=== PATIENT | male | born 1980 | race African-American/Black ===

== ENCOUNTER 2017-03-13 21:57 | Emergency (ER) | payer OTHER ==
[~2017-03-13 21:57] MED LIST: DILA8TAB4 PO; RANI150 PO
[2017-03-13 21:58] VITALS: BP 134/89; PULSE 84; RESP 14; TEMP 98.7; O2SAT 98
[2017-03-13] MEDS ORDERED: CYCL10TA PO (22:29)
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
[2017-03-13] MEDS ORDERED: CYCLOBENZAPRINE HCL 10 MG TAB PO ONE (22:30)
== END 2017-03-13 22:50 | disposition home or self-care (01) ==
LOC: NEPD 21:57
DX: M54.9 Dorsalgia, unspecified (principal); M25.512 Pain in left shoulder; M79.1 Myalgia; J45.909 Unspecified asthma, uncomplicated; F17.210 Nicotine dependence, cigarettes, uncomplicated; V43.62XA Car passenger injured in collision with other type car in traffic accident, initial encounter; Z79.899 Other long term (current) drug therapy
CPT/HCPCS: 99283

== ENCOUNTER 2017-04-06 06:01 | Emergency (ER) | payer SELFPAY ==
[2017-04-06] MEDS ORDERED: HYDROmorphone HCL PF 1 MG/ML VIAL IV PUSH (06:30)
[2017-04-06] MEDS: SODIUM CHLOR 0.9% 1000 ML INJ 1,000 ML IV (06:42)
[2017-04-06] MEDS: ONDANSETRON HCL 4 MG/2 ML VIAL IV (06:42)
[2017-04-06] MEDS: PANTOPRAZOLE SODIUM 40 MG VIAL IV PUSH (06:42)
[2017-04-06] MEDS: MORPHINE SULFATE 2 MG/ML INJ IM (06:45)
[2017-04-06 06:58] LABS: AUTOMATED NEUTROPHIL # 10.1 TH/MM3 (1.8-7.7); BASOPHIL % 0.2 % (0.0-2.0); EOSINOPHIL % 0.3 % (0.0-4.0); HEMATOCRIT 40.5 % (39.0-51.0); HEMO FLAGS DIFF FINAL; HEMOGLOBIN 13.9 GM/DL (13.0-17.0); LYMPH % 9.9 % (9.0-44.0); LYMPHOCYTE # 1.2 TH/MM3 (1.0-4.8); MEAN CELL VOLUME 92.5 FL (80.0-100.0); MEAN CORPUSCULAR HEMOGLOBIN 31.6 PG (27.0-34.0); MEAN CORPUSCULAR HGB CONC 34.2 % (32.0-36.0); MEAN PLATELET VOLUME 8.7 FL (7.0-11.0); MONO % 3.7 % (0.0-8.0); MONOCYTE # 0.4 TH/MM3 (0-0.9); NEUT % 85.9 % (16.0-70.0); PLATELET COUNT 189 TH/MM3 (150-450); RED BLOOD COUNT 4.38 MIL/MM3 (4.50-5.90); RED CELL DISTRIBUTION WIDTH 13.1 % (11.6-17.2); WHITE BLOOD COUNT 11.8 TH/MM3 (4.0-11.0)
[2017-04-06 07:36] LABS: ALBUMIN 4.2 GM/DL (3.4-5.0); ALKALINE PHOSPHATASE 79 U/L (45-117); ALT (GPT) 24 U/L (12-78); ANION GAP 8 MEQ/L (5-15); AST (GOT) 17 U/L (15-37); BLOOD UREA NITROGEN 15 MG/DL (7-18); CALCIUM 8.6 MG/DL (8.5-10.1); CHLORIDE 107 MEQ/L (98-107); CREATININE 1.04 MG/DL (0.60-1.30); GLOMERULAR FILTRATION RATE 99 ML/MIN (>89); GLUCOSE,RANDOM 135 MG/DL (74-106); POTASSIUM 3.5 MEQ/L (3.5-5.1); SODIUM (NA) 141 MEQ/L (136-145); TOTAL BILIRUBIN ADULT 0.3 MG/DL (0.2-1.0)
[2017-04-06 07:37] LABS: C-REACTIVE PROTEIN 0.74 MG/DL (0.00-0.30); LIPASE 163 U/L (73-393)
[2017-04-06] MEDS: IOHEXOL 350 MG/ML 10 ML VIAL (for RAD DIAG) IVCONTRAST (08:30)
[2017-04-06 09:19] LABS: BILIRUBIN, URINE NEG (NEG); BLOOD, URINE NEG (NEG); COMMENT (UR) CULT NOT INDICATED; CULTURE IF INDICATED CULT NOT INDICATED; GLUCOSE,URINE NEG (NEG); KETONE, URINE NEG (NEG); MUCUS URINE FEW /lpf (OCC); NITRITE,URINE NEG (NEG); URINE COLOR YELLOW (YELLW/STRAW); URINE LEUKOCYTE ESTERASE NEG (NEG)
== END 2017-04-06 10:03 | disposition home or self-care (01) ==
LOC: NEPC 06:01
DX: R10.10 Upper abdominal pain, unspecified (principal); R19.7 Diarrhea, unspecified; K80.20 Calculus of gallbladder without cholecystitis without obstruction; F17.210 Nicotine dependence, cigarettes, uncomplicated
CPT/HCPCS: 71045; 74177; 80053; 81001; 83690; 83735; 85025; 86140; 96361; 96372; 96374; 96375; 99285-25

== ENCOUNTER 2017-05-15 19:12 | Emergency (ER) | payer SELFPAY ==
[~2017-05-15] VITALS: Ht 185.4 cm; Wt 75.0 kg
[~2017-05-15 19:12] MED LIST changes: +CARA1TAB6 PO; +DICY10 PO; -DILA8TAB4 PO; +HYDR8TAB PO; +PROT40TA PO; -RANI150 PO
[2017-05-15 19:32] VITALS: BP 136/69; PULSE 75; RESP 18; TEMP 98; O2SAT 100
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
[2017-05-15] MEDS ORDERED: LIDOCAINE 1%/EPINEPHrine 1:100,000 SOLN 20 ML VIAL INFIL ONE (20:00)
[2017-05-15 20:09] VITALS: BP 134/73; PULSE 100; RESP 16; O2SAT 99
[2017-05-15] MEDS ORDERED: MOBI7.5T PO (20:18)
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
[2017-05-15] MEDS ORDERED: TETANUS/DIPHTHERIA TOXOID ADULT 0.5 ML VIAL IM ONE (21:15)
[2017-05-15] MEDS ORDERED: BACT800T5 PO (21:16)
[2017-05-15] MEDS ORDERED: CEPH-460 PO (21:16)
[2017-05-15] MEDS ORDERED: IBUP1TAB7 PO (21:17)
== END 2017-05-15 21:42 | disposition home or self-care (01) ==
LOC: NEPC 19:12
DX: S81.812A Laceration without foreign body, left lower leg, initial encounter (principal); S80.12XA Contusion of left lower leg, initial encounter; F17.210 Nicotine dependence, cigarettes, uncomplicated; V86.96XA Unspecified occupant of dirt bike or motor/cross bike injured in nontraffic accident, initial encounter
CPT/HCPCS: 12032; 73590

== ENCOUNTER 2017-05-21 09:42 | Emergency (ER) | payer SELFPAY ==
[~2017-05-21 09:42] MED LIST changes: +BACT800T5 PO; -CARA1TAB6 PO; +CEPH-460 PO; -DICY10 PO; +IBUP1TAB7 PO; +MOBI7.5T PO; -PROT40TA PO
[2017-05-21 09:49] VITALS: BP 137/65; PULSE 101; RESP 16; TEMP 97.4; O2SAT 98
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
--- NOTE | 2017-05-21 11:32 | RADRPT ---
EXAM DATE/TIME: 05/21/2017 10:55 [facility] COMPARISON: No previous studies available for comparison. INDICATIONS : Left leg edema with injury. MEDICAL HISTORY : Asthma. Left leg injury. SURGICAL HISTORY : Thoracic surgery. ENCOUNTER: Initial ACUITY: 4 - 6 days PAIN SCORE: 5/10 LOCATION: Left leg. TECHNIQUE: Venous ultrasound of the leg was performed from the inguinal ligament to the proximal calf. Real-tejinder e, color Doppler and spectral tracing, compression and augmentation techniques were used. FINDINGS: There is normal compressibility of the deep venous system from the inguinal region to the proximal ca lf. No echogenic clot is seen in the lumen of the common femoral, femoral, popliteal, and posterior tibial veins. There is a normal response of the venous system to proximal and distal augmentation an d respiration. CONCLUSION: No evidence of DVT. Lei Young MD on May 21, 2017 at 11:30 Board Certified Radiologist. This report was verified electronically.
== END 2017-05-21 12:09 | disposition home or self-care (01) ==
LOC: NEPK 09:42
DX: R60.0 Localized edema (principal); G89.29 Other chronic pain; M54.9 Dorsalgia, unspecified; F17.210 Nicotine dependence, cigarettes, uncomplicated
CPT/HCPCS: 93971

== ENCOUNTER 2017-06-01 14:46 | Emergency (ER) | payer SELFPAY ==
[2017-06-01 15:06] VITALS: BP 124/74; PULSE 80; RESP 16; TEMP 98; O2SAT 100
--- NOTE | 2017-06-01 15:14 | PD ---
HPI Chief Complaint: Wound/Suture/Staple Re-Check Time Seen by Provider: 15:03 Travel History International Travel<30 days: No Contact w/Intl Traveler<30days: No Traveled to known affect area: No History of Present Illness HPI 36-year-old male presents emergency department for suture removal from his right anterior distal lower extremity. These were placed approximately 3 weeks ago. Patient states he did not have time to get back here. Denies any pain at site. No drainage. No fever or chills. He has no other symptoms to report. PFSH Past Medical History Asthma: Yes ( A CHILD) Musculoskeletal: Yes (CHRONIC BACK PAIN) Immunizations Current: Yes Past Surgical History Thoracic Surgery: Yes (L lung punctured) Other Surgery: Yes Social History Alcohol Use: Yes (1-2 every other week) Tobacco Use: Yes (8 CIGS A DAY) Substance Use: No Allergies-Medications (Allergen,Severity, Reaction): Coded Allergies: No Known Allergies (Verified Adverse Reaction, Unknown, 05/15/17) Reported Meds & Prescriptions Reported Meds & Active Scripts Active Ibuprofen 800 Mg Tab 800 Mg PO Q8H PRN Bactrim DS (Sulfamethoxazole-Trimethoprim) 800-160 Mg Tab 1 Tab PO BID Keflex (Cephalexin) 500 Mg Cap 500 Mg PO Q6H 5 Days Reported Mobic (Meloxicam) 7.5 Mg Tab 7.5 Mg PO DAILY Hydromorphone (Hydromorphone HCl) 8 Mg Tab 8 Mg PO Q6H PRN Review of Systems Except as stated in HPI: all other systems reviewed are Neg Physical Exam Narrative GENERAL: Well-nourished, well-developed male patient in no acute distress. SKIN: Focused skin assessment warm/dry. Scabbed 5 cm laceration on the left anterior distal lower extremity. No erythema or edema. HEAD: Normocephalic. EYES: No scleral icterus. No injection or drainage. NECK: Supple, trachea midline. No JVD or lymphadenopathy. CARDIOVASCULAR: Regular rate and rhythm without murmurs, gallops, or rubs. RESPIRATORY: Breath sounds equal bilaterally. No accessory muscle use. MUSCULOSKELETAL: No cyanosis, or edema. BACK: Nontender without obvious deformity. No CVA tenderness. Data Data Last Documented VS Vital Signs Date Time Temp Pulse Resp B/P (MAP) Pulse Ox O2 Delivery O2 Flow Rate FiO2 06/01/17 15:06 98.0 80 16 124/74 (91) 100 Orders Orders Ed Discharge Order (06/01/17 15:13) MDM Medical Decision Making Medical Screen Exam Complete: Yes Emergency Medical Condition: Yes Medical Record Reviewed: Yes Differential Diagnosis Suture removal versus infected wound versus wound dehiscence Narrative Course 36-year-old male presents emergency department for removal of sutures from his left lower extremity. Sutures are removed without difficulty. Patient tolerated this well. The wound appears well approximated and to be healing. Patient is counseled on care. He agrees to return immediately with any acute worsening symptoms. Diagnosis Primary Impression: Encounter for removal of sutures Med/Other Pt SpecificInfo: No Change to Meds Disposition: 01 DISCHARGE HOME Condition: Stable Christina Del Rosario Jun 01, 2017 15:14
== END 2017-06-01 15:15 | disposition home or self-care (01) ==
LOC: NED 14:46
DX: Z48.02 Encounter for removal of sutures (principal); J45.909 Unspecified asthma, uncomplicated; F17.210 Nicotine dependence, cigarettes, uncomplicated; Z79.899 Other long term (current) drug therapy
CPT/HCPCS: 99281